=== PATIENT | female | born 1950 | race Caucasian/White ===

== ENCOUNTER 2022-08-27 06:41 | Emergency (ER) | payer BC, MEDICARE ==
[~2022-08-27] VITALS: Ht 160 cm; Wt 63.8 kg
[2022-08-27] MEDS ORDERED: METOPROLOL TART 50 MG TAB PO ONE (07:20)
[2022-08-27 07:42] LABS: BASO % 0.7 % (0.0-1.0); EOS # 0.1 10^3/uL (0.0-0.5); EOS % 2.9 % (0.0-3.0); HEMATOCRIT 26.7 % (36.0-47.0); HEMOGLOBIN 9.2 g/dl (12.0-15.5); LYMPH # 1.1 10^3/uL (1.5-5.0); LYMPH % 25.8 % (24.0-44.0); MEAN CORPUSCULAR HEMOGLOBIN 31.8 pg (27.0-33.0); MEAN CORPUSCULAR HGB CONC 34.5 g/dl (32.0-36.5); MEAN CORPUSCULAR VOLUME 92.4 fl (80.0-96.0); MONO # 0.4 10^3/uL (0.0-0.8); MONO % 10.6 % (2.0-8.0); NEUTROPHILS # 2.5 10^3/uL (1.5-8.5); NEUTROPHILS % 59.8 % (36.0-66.0); PLATELET COUNT, AUTOMATED 181 10^3/uL (150-450); RED BLOOD COUNT 2.89 10^6/uL (4.00-5.40); WHITE BLOOD COUNT 4.1 10^3/uL (4.0-10.0)
[2022-08-27 08:00] LABS: INR 0.91; PROTHROMBIN TIME 12.5 SECONDS (12.5-14.5)
[2022-08-27 08:03] LABS: CK-MB VALUE MASS 1.3 NG/ML (<3.6)
[2022-08-27 08:06] LABS: ALBUMIN 3.8 G/DL (3.2-5.2); BILIRUBIN,DIRECT 0.1 MG/DL (<0.4); BILIRUBIN,TOTAL 0.4 MG/DL (0.3-1.2); CALCIUM LEVEL 8.7 MG/DL (8.3-10.6); CREATININE FOR GFR 1.07 MG/DL (0.55-1.30); GLOMERULAR FILTRATION RATE 53.4 (>39); MB/CK RELATIVE INDEX 1.26 (< OR =4); POTASSIUM SERUM 4.7 MMOL/L (3.5-5.1); TOTAL PROTEIN 6.7 G/DL (5.7-8.2)
[2022-08-27 08:07] LABS: FREE T4 1.02 NG/DL (0.89-1.76); THYROID STIMULATING HORMONE 1.494 uIU/ML (0.55-4.78)
[2022-08-27] MEDS ORDERED: ROSU20TA5 PO (09:24)
[2022-08-27] MEDS ORDERED: CALC600T57 PO (09:24)
[2022-08-27] MEDS ORDERED: ASPI81CH33 PO (09:24)
[2022-08-27] MEDS ORDERED: ACET-683 PO (09:24)
[2022-08-27] MEDS ORDERED: METO1TAB7 PO (09:24)
[2022-08-27] MEDS ORDERED: ICOS1CAP PO (09:24)
[2022-08-27] MEDS ORDERED: PANT40TA29 PO (09:24)
[2022-08-27] MEDS ORDERED: LISI10TA22 PO (09:24)
[2022-08-27] MEDS ORDERED: INSU100I48 (09:24)
[2022-08-27] MEDS ORDERED: VITMTA PO (09:24)
[2022-08-27] MEDS ORDERED: HUMA100I5 (09:24)
[2022-08-27 09:28] LABS: CK-MB VALUE MASS 1.6 NG/ML (<3.6)
[2022-08-27 09:30] LABS: MB/CK RELATIVE INDEX 1.55 (< OR =4)
[2022-08-27 11:18] LABS: CK-MB VALUE MASS 1.5 NG/ML (<3.6)
[2022-08-27 11:19] LABS: MB/CK RELATIVE INDEX 1.48 (< OR =4)
[2022-08-27] MEDS ORDERED: ASPIRIN 81MG CHEW TABLET PO ONE (12:00)
[2022-08-27] MEDS ORDERED: METOPROLOL TART 25 MG TABLET PO ONE (12:05)
[2022-08-27 12:24] VITALS: BP 190/81
[2022-08-27 13:53] VITALS: BP 196/87; TEMP 98.3; O2SAT 99
== END 2022-08-27 14:08 | disposition short-term general hospital (02) ==
LOC: M ED 06:41
DX: I21.4 Non-ST elevation (NSTEMI) myocardial infarction (principal); I48.91 Unspecified atrial fibrillation; I11.9 Hypertensive heart disease without heart failure; I25.2 Old myocardial infarction; E78.5 Hyperlipidemia, unspecified; Z95.5 Presence of coronary angioplasty implant and graft; E10.9 Type 1 diabetes mellitus without complications; Z88.5 Allergy status to narcotic agent; Z79.899 Other long term (current) drug therapy; Z79.82 Long term (current) use of aspirin; Z79.4 Long term (current) use of insulin